=== PATIENT | female | born 2005 | race Caucasian/White ===

== ENCOUNTER 2024-07-17 12:49 | Emergency (ER) | payer OTHER ==
[2024-07-17 12:58] LABS: Glucose,Whole Blood 86 mg/dL (70-110)
--- NOTE | 2024-07-17 13:46 | ED ---
Fall HPI - General Source: patient, RN notes reviewed Mode of arrival: ambulatory Limitations: no limitations <Billy Rico - Last Filed: 07/17/24 13:45> - General Source: patient, RN notes reviewed Mode of arrival: ambulatory Limitations: no limitations - History of Present Illness MD Complaint: fall <Vi Dubois - Last Filed: 07/17/24 15:59> - General Chief Complaint: Fall Stated Complaint: head injury,dizzy Time Seen by Provider: 07/17/24 13:45 - History of Present Illness Initial Comments: Quick note: 18-year-old female presented the ER for evaluation of a head injury. Patient states night she was drinking alcohol and accidentally slipped on shoes by the front door causing her to fall backward and hit the back of her head/neck on a step. She denies loss of consciousness or blood thinner use. She states she slept all day yesterday. She also admits nausea with episodes of vomiting. Patient denies or other injuries. (Billy Rico) This is a 18-year-old female who presents to the emergency department for a head injury. States that 2 days ago when she was drinking alcohol she tripped and fe ll, hitting the back of her head. Denies any loss of consciousness. However, she continues to feel dizzy and nauseous. States that she also feels fatigued and continues to have pain to the back of her head and neck. (Vi Dubois) - Related Data Allergies Allergy/AdvReac Type Severity Reaction Status Date / Time No Known Allergies Allergy Verified 07/17/24 12:55 Review of Systems ROS Other: All systems not noted in ROS Statement are negative. <Billy Rico - Last Filed: 07/17/24 13:45> ROS Other: All systems not noted in ROS Statement are negative. <Vi Dubois - Last Filed: 07/17/24 15:59> ROS Statement: Those systems with pertinent positive or pertinent negative responses have been documented in the HPI. Past Medical History Past Medical History: No Reported History History of Any Multi-Drug Resistant Organisms: None Reported Past Surgical History: Joint Replacement, Orthopedic Surgery Past Psychological History: No Psychological Hx Reported Smoking Status: Current every day smoker Past Alcohol Use History: Occasional Past Drug Use History: None Reported <Billy Rico - Last Filed: 07/17/24 13:45> General Exam Limitations: no limitations <Billy Rico - Last Filed: 07/17/24 13:45> Limitations: no limitations General appearance: alert, in no apparent distress Head exam: Present: atraumatic, normocephalic, normal inspection Eye exam: Present: normal appearance, PERRL, EOMI. Absent: scleral icterus, co njunctival injection, periorbital swelling Respiratory exam: Present: normal lung sounds bilaterally. Absent: respiratory distress, wheezes, rales, rhonchi, stridor Cardiovascular Exam: Present: regular rate, normal rhythm GI/Abdominal exam: Present: soft, tenderness (RLQ), normal bowel sounds. Absent: distended Neurological exam: Present: alert, oriented X3, CN II-XII intact Psychiatric exam: Present: normal affect, normal mood Skin exam: Present: warm, dry, intact, normal color. Absent: rash <iV Dubois - Last Filed: 07/17/24 15:59> - General Exam Comments Initial Comments: Visual Physical Exam Vital signs reviewed General: Well-appearing, nontoxic, no acute distress. Head: Normocephalic, atraumatic Eyes: PERRLA, EOMI ENT: Airway patent Chest: Nonlabored breathing Skin: No visual rash, normal skin tone Neuro: Alert and oriented 3 Musculoskeletal: No gross abnormalities (Billy Rico) Course Vital Signs 07/17/24 07/17/24 12:52 15:18 Temperature 98.5 F 98.6 F Pulse Rate 93 64 Respiratory 18 16 Rate Blood Pressure 160/96 103/70 O2 Sat by Pulse 100 100 Oximetry Medical Decision Making <Billy Rico - Last Filed: 07/17/24 13:45> <Vi Dubois - Last Filed: 07/17/24 15:59> - Medical Decision Making I performed the quick note portion of this chart. Electronically signed by Billy Rico PA-C (Billy Rico) This is a 18 year old female who presents to the emergency department for a head injury. Was pt. sent in by a medical professional or institution? @ -No Did you speak to anyone other than the patient for history? @ -No Did you review nursing and triage notes? @ -Yes, and I agree, it is accurate with regards to the patient's symptoms. Were old charts reviewed? @ -No Differential Diagnosis? @ -Differential Diagnosis Head Injury: Contusion, hematoma, intracranial hemorrhage, skull fracture, whiplash, concussion, this is not meant to be an all-inclusive list. EKG interpreted by me (3pts min.)? @ -Not obtained X-rays interpreted by me (1pt min.)? @ -Not obtained CT interpreted by me (1pt min.)? @ -Computed tomography scan of the brain and c-spine obtained. My interpretation identifies no evidence of an acute intracranial hemorrhage, skull fracture, or cervical spine fracture. U/S interpreted by me (1pt. min.)? @ -Not obtained What testing was considered but not performed? (CT, X-rays, U/S, labs)? Why? @ -None What meds were considered but not given? Why? @ -None Did you discuss the management of the patient with other professionals? @ -No Did you reconcile home meds? @ -No Was smoking cessation discussed for >3mins.? @ -No Was critical care preformed (if so, how long)? @ -No Were there social determinants of health that impacted care today? How? (Homelessness, low income, unemployed, alcoholism, drug addiction, transportation, low edu. Level, literacy, decrease access to med. care, care home, rehab)? @ -No Was there de-escalation of care discussed even if they declined? (Discuss DNR or withdrawal of care, Hospice)? @ -No What co-morbidities impacted this encounter? (DM, HTN, Smoking, COPD, CAD, Cancer, CVA, Hep., AIDS, mental health diagnosis, sleep apnea, morbid obesity)? @ -None Was patient admitted / discharged? @ -Discharged. CT scan of the brain and c-spine obtained revealing no acute process. Symptoms treated in the emergency department. Concussion protocol/precautions discussed. Advised Ibuprofen and Tylenol as needed for pain control. Patient discharged home in stable condition. Case discussed with ED attending, Dr. Silvestre. Return precautions reviewed in depth, the patient is instructed to return to the emergency department with any new, worsening, or concerning symptoms. Patient verbalized understanding. Undiagnosed new problem with uncertain prognosis? @ -None Drug Therapy requiring intensive monitoring for toxicity (Heparin, Nitro, Insulin, Cardizem)? @ -None Were any procedures done? @ -None Diagnosis/symptom? @ -Head injury Acute, or Chronic, or Acute on Chronic? @ -Acute Uncomplicated (without systemic symptoms) or Complicated (systemic symptoms)? @ -Uncomplicated Side effects of treatment? @ -None Exacerbation, Progression, or Severe Exacerbation] @ -Not applicable Poses a threat to life or bodily function? @ -No (Vi Dubois) - Lab Data Lab Results 07/17/24 Range/Units 12:57 POC Glucose (mg/dL) 86 (70-110) mg/dL POC Glu Fire Technician ID Anyi Hoff Disposition <Billy Rico - Last Filed: 07/17/24 13:45> Is patient prescribed a controlled substance at d/c from ED?: No Time of Disposition: 14:37 <Vi Dubois - Last Filed: 07/17/24 15:59> Clinical Impression: Fall, Head injury Disposition: HOME SELF-CARE Instructions (If sedation given, give patient instructions): Concussion (ED), Head Injury (ED) Additional Instructions: Return to the emergency department with any new, worsening, or concerning symptoms. Alternate with ibuprofen and Tylenol as needed for any additional headaches. Follow up with your primary care provider in 1-2 days. Referrals: None,Stated [Primary Care Provider] - 1-2 days
[2024-07-17] MEDS: ACETAMINOPHEN TAB 500 MG TAB PO STA (14:23)
[2024-07-17] MEDS: ONDANSETRON ODT 4 MG TAB PO STA (14:23)
--- NOTE | 2024-07-17 14:26 | CT ---
EXAMINATION TYPE: CT brain cspine wo con DATE OF EXAM: 07/17/2024 2:07 PM COMPARISON: None. CLINICAL INDICATION: Female, 18 years old with history of head injury- tingling to arms; FALL, LEFT P OSTERIOR HEAD/NECK PAIN TECHNIQUE: Brain: Multiple axial CT images of the brain were obtained without IV contrast. Cspine: Axial CT images from the skull base to the inferior aspect of T2 we obtained without intraven ous contrast. Coronal and sagittal reformatted images were also reviewed. . CT DLP: 1227.4 mGycm, Automated exposure control for dose reduction was used. FINDINGS: Brain: Extra-axial spaces: No abnormal extra-axial fluid collections. Ventricular system: Within normal limits Cerebral parenchyma: No acute intraparenchymal hemorrhage or mass effect. The godoy-white junction is well differentiated. Cerebellum: Unremarkable. Mass effect: No evidence of midline shift. Intracranial vasculature: unremarkable Soft tissues: Normal. Calvarium/osseous structures: No depressed skull fracture. Paranasal sinuses and mastoid air cells: Clear. Visualized orbits: Orbital contents are intact. Cervical spine: Fracture: None. Osseous structures: Unremarkable Vertebral alignment: Within normal limits. Spinal canal/Neural Foramina: No evidence of significant spinal canal narrowing. No evidence for sign ificant neural foraminal stenosis. Neck soft tissues: Prevertebral soft tissues are within normal limits. Other: The airway is patent. The lung apices are clear. IMPRESSION: 1. No acute intracranial process. 2. No evidence of cervical spine fracture. [facility], , 07/17/2024 2:24 PM
[2024-07-17] MEDS: ONDANSETRON 4 MG ODT STARTER PACK 2 TAB BTL PO STA (15:17)
[2024-07-17 15:19] VITALS: BP 103/70; PULSE 64; RESP 16; TEMP 98.6
== END 2024-07-17 15:19 | disposition home or self-care (01) ==
LOC: EC 12:49
DX: S09.90XA Unspecified injury of head, initial encounter (principal); R42 Dizziness and giddiness; F17.200 Nicotine dependence, unspecified, uncomplicated; W01.198A Fall on same level from slipping, tripping and stumbling with subsequent striking against other object, initial encounter
CPT/HCPCS: 36415; 72125; 70450; 99284; S0119

== ENCOUNTER 2024-10-14 05:52 | Emergency (ER) | payer OTHER ==
[2024-10-14 05:58] VITALS: BP 112/76; PULSE 68; RESP 19; TEMP 97.9
[2024-10-14] MEDS: KETOROLAC 15 MG/ML 1 ML VIAL IVP STA (06:33)
[2024-10-14] MEDS: SODIUM CHLORIDE 0.9% 1,000 ML IV ONE (06:34)
[2024-10-14] MEDS: ONDANSETRON 4 MG/2 ML VIAL IVP STA (06:34)
[2024-10-14 06:37] LABS: Basophils # (A) 0.05 10*3/uL (0.00-0.10); Basophils % (A) 0.5 %; Eosinophils # (A) 0.39 10*3/uL (0.04-0.35); Eosinophils % (A) 4.1 %; HCT 41.9 % (37.2-46.3); HGB 14.0 g/dL (12.0-15.0); Lymphocytes # (A) 1.90 10*3/uL (0.90-5.00); Lymphocytes % (A) 20.1 %; MCH 28.8 pg (27.0-32.0); MCHC 33.4 g/dL (32.0-37.0); MCV 86.2 fL (80.0-97.0); Monocytes # (A) 0.83 10*3/uL (0.20-1.00); Monocytes % (A) 8.8 %; Neutrophils # (A) 6.24 10*3/uL (1.80-7.70); Neutrophils % (A) 66.2 %; Platelet Count 189 10*3/uL (140-440); RBC 4.86 10*6/uL (4.10-5.20); RDW 16.0 % (11.5-14.5); WBC 9.44 10*3/uL (4.50-10.00)
[2024-10-14 06:53] LABS: ALT 12 U/L (4-34); AST 18 U/L (14-36); African American GFR (CKD) >90 (>60 ml/min/1.73 sqM); Albumin 4.9 g/dL (3.5-5.0); Alkaline Phosphatase 81 U/L (38-126); Anion Gap 13 mmol/L; Blood Urea Nitrogen 8 mg/dL (7-17); Calcium 9.6 mg/dL (8.4-10.2); Carbon Dioxide 23 mmol/L (22-30); Chloride 102 mmol/L (98-107); Glucose 98 mg/dL (74-99); Lipase 37 U/L (23-300); Non-African American GFR(CKD) >90 (>60 ml/min/1.73 sqM); Potassium 3.8 mmol/L (3.5-5.1); Sodium 138 mmol/L (137-145); Total Protein 7.6 g/dL (6.3-8.2)
--- NOTE | 2024-10-14 07:43 | ED ---
Abdominal Pain HPI - General Chief Complaint: Abdominal Pain Stated Complaint: Abd Pain/Back Pain Time Seen by Provider: 10/14/24 06:03 Source: patient, RN notes reviewed Mode of arrival: wheelchair Limitations: no limitations - History of Present Illness Initial Comments: 19-year-old female presents emergency department chief complaint abdominal pain. Patient states pain is intensifying states she feels very bloated, distended. Patient denies any urinary symptoms no change in bowel habits admits slight nausea states that pain is making her shake denies any chance states last menstrual cycle was 1 week ago. No chest pain or shortness of breath. - Related Data Previous Rx's Medication Instructions Recorded Ketorolac [Toradol] 10 mg PO Q8HR #15 tab 10/14/24 Allergies Allergy/AdvReac Type Severity Reaction Status Date / Time No Known Allergies Allergy Verified 10/14/24 05:58 Review of Systems ROS Statement: Those systems with pertinent positive or pertinent negative responses have been documented in the HPI. ROS Other: All systems not noted in ROS Statement are negative. Past Medical History Past Medical History: No Reported History History of Any Multi-Drug Resistant Organisms: None Reported Past Surgical History: Joint Replacement, Orthopedic Surgery Past Psychological History: No Psychological Hx Reported Smoking Status: Current every day smoker Past Alcohol Use History: Occasional Past Drug Use History: None Reported General Exam Limitations: no limitations General appearance: alert, in no apparent distress Head exam: Present: atraumatic, normocephalic, normal inspection Eye exam: Present: normal appearance, PERRL, EOMI. Absent: scleral icterus, conjunctival injection, periorbital swelling ENT exam: Present: normal exam, normal oropharynx, mucous membranes moist Neck exam: Present: normal inspection. Absent: tenderness, meningismus, lymphadenopathy Respiratory exam: Present: normal lung sounds bilaterally. Absent: respiratory distress, wheezes, rales, rhonchi, stridor Cardiovascular Exam: Present: regular rate, normal rhythm, normal heart sounds. Absent: systolic murmur, diastolic murmur, rubs, gallop, clicks GI/Abdominal exam: Present: soft, tenderness, normal bowel sounds. Absent: distended, guarding, rebound, rigid Back exam: Absent: CVA tenderness (R), CVA tenderness (L) Neurological exam: Present: alert, oriented X3 Course Vital Signs 10/14/24 05:55 Temperature 97.9 F Pulse Rate 68 Respiratory 19 Rate Blood Pressure 112/76 O2 Sat by Pulse 98 Oximetry Medical Decision Making - Medical Decision Making Was pt. sent in by a medical professional or institution ([facility], [facility], urgent care, hospital, or retirement...) When possible be specific @ -No Did you speak to anyone other than the patient for history (EMS, parent, family, police, friend...)? What history was obtained from this source @ -No Did you review nursing and triage notes (agree or disagree)? Why? @ -I reviewed and agree with nursing and triage notes Were old charts reviewed (outside hosp., previous admission, EMS record, old EKG, old radiological studies, urgent care reports/EKG's, retirement records)? Report findings @ -No old charts were reviewed Differential Diagnosis (chest pain, altered mental status, abdominal pain women, abdominal pain men, vaginal bleeding, weakness, fever, dyspnea, syncope, headache, dizziness, GI bleed, back pain, seizure, CVA, palpatations, mental health, musculoskeletal)? @ -Differential Abdominal Pain Women: Appendicitis, Cholecystitis, diverticulosis, ischemic bowel, pancreatitis, hepatitis, UTI, gastroenteritis, AAA, incarcerated hernia, bowel obstruction, constipation, inflammatory bowel, hepatitis, peptic ulcer disease, splenic infarction, perforated viscus, vulvitis, ovarian torsion, PID, kidney stone, placenta abruption, this is not meant to be an all-inclusive list EKG interpreted by me (3pts min.). @None X-rays interpreted by me (1pt min.). @ -None done CT interpreted by me (1pt min.). @ -CT pelvis showing some free fluid, ovarian cyst noted U/S interpreted by me (1pt. min.). @ -None done What testing was considered but not performed or refused? (CT, X-rays, U/S, labs)? Why? @ -None What meds were considered but not given or refused? Why? @ -None Did you discuss the management of the patient with other professionals (professionals i.e. [facility], [facility], lab, RT, psych nurse, family welfare social work professor, nut cracker, te acher, navy airspace officer, case fitter)? Give summary @ -No Was smoking cessation discussed for >3mins.? @ -No Was critical care preformed (if so, how long)? @ -No Were there social determinants of health that impacted care today? How? (Homelessness, low income, unemployed, alcoholism, drug addiction, transportation, low edu. Level, literacy, decrease access to med. care, snf, rehab)? @ -No Was there de-escalation of care discussed even if they declined (Discuss DNR or withdrawal of care, Hospice)? DNR status @ -No What co-morbidities impacted this encounter? (DM, HTN, Smoking, COPD, CAD, Cancer, CVA, ARF, Chemo, Hep., AIDS, mental health diagnosis, sleep apnea, morbid obesity)? @ -None Was patient admitted / discharged? Hospital course, mention meds given and route, prescriptions, significant lab abnormalities, going to OR and other pertinent info. @ -Labs are/unremarkable patient has ruptured ovarian cyst patient's pain has resolved. Patient discharged in stable condition. Undiagnosed new problem with uncertain prognosis? @ -No Drug Therapy requiring intensive monitoring for toxicity (Heparin, Nitro, Insulin, Cardizem)? @ -No Were any procedures done? @ -No Diagnosis/symptom? @ -Ruptured ovarian cyst Acute, or Chronic, or Acute on Chronic? @ -Acute Uncomplicated (without systemic symptoms) or Complicated (systemic symptoms)? @ncomplicated Side effects of treatment? @ -No Exacerbation, Progression, or Severe Exacerbation? @ -No Poses a threat to life or bodily function? How? (Chest pain, [place], [place], pneumonia, PE, COPD, DKA, ARF, appy, cholecystitis, CVA, Diverticulitis, Homicidal, Suicidal, threat to staff... and all critical care pts) @ -No - Lab Data Result diagrams: 10/14/24 06:24 10/14/24 06:24 Lab Results 10/14/24 10/14/24 10/14/24 Range/Units 06:24 06:24 07:15 WBC 9.44 (4.50-10.00) 10*3/uL RBC 4.86 (4.10-5.20) 10*6/uL Hgb 14.0 (12.0-15.0) g/dL Hct 41.9 (37.2-46.3) % MCV 86.2 (80.0-97.0) fL MCH 28.8 (27.0-32.0) pg MCHC 33.4 (32.0-37.0) g/dL Plt Count 189 (140-440) 10*3/uL MPV 10.4 (9.5-12.2) fL Immature Gran % (Auto) 0.3 % Neutrophils % 66.2 % Lymphocytes % 20.1 % Monocytes % 8.8 % Eosinophils % 4.1 % Basophils % 0.5 % Immature Gran # 0.03 (0.00-0.04) 10*3/uL Neutrophils # 6.24 (1.80-7.70) 10*3/uL Lymphocytes # 1.90 (0.90-5.00) 10*3/uL Monocytes # 0.83 (0.20-1.00) 10*3/uL Eosinophils # 0.39 H (0.04-0.35) 10*3/uL Basophils # 0.05 (0.00-0.10) 10*3/uL Sodium 138 (137-145) mmol/L Potassium 3.8 (3.5-5.1) mmol/L Chloride 102 (98-107) mmol/L Carbon Dioxide 23 (22-30) mmol/L Anion Gap 13 mmol/L BUN 8 (7-17) mg/dL Creatinine 0.75 (0.52-1.04) mg/dL Est GFR (CKD-EPI)AfAm >90 (>60 ml/min/1.73 sqM) Est GFR (CKD-EPI)NonAf >90 (>60 ml/min/1.73 sqM) Glucose 98 (74-99) mg/dL Calcium 9.6 (8.4-10.2) mg/dL Total Bilirubin 0.6 (0.2-1.3) mg/dL AST 18 (14-36) U/L ALT 12 (4-34) U/L Alkaline Phosphatase 81 (38-126) U/L Total Protein 7.6 (6.3-8.2) g/dL Albumin 4.9 (3.5-5.0) g/dL Lipase 37 (23-300) U/L Urine Color Yellow Urine Appearance Clear (Clear) Urine pH 6.0 (5.0-8.0) Ur Specific Ages [place] 1.022 (1.001-1.035) Urine Protein Negative (Negative) Urine Glucose (UA) Negative (Negative) Urine Ketones Negative (Negative) Urine Blood Negative (Negative) Urine Nitrite Negative (Negative) Urine Bilirubin Negative (Negative) Urine Urobilinogen <2.0 (<2.0) mg/dL Ur Leukocyte Esterase Negative (Negative) Urine HCG, Qual (Not Detectd) 10/14/24 Range/Units 07:15 WBC (4.50-10.00) 10*3/uL RBC (4.10-5.20) 10*6/uL Hgb (12.0-15.0) g/dL Hct (37.2-46.3) % MCV (80.0-97.0) fL MCH (27.0-32.0) pg MCHC (32.0-37.0) g/dL Plt Count (140-440) 10*3/uL MPV (9.5-12.2) fL Immature Gran % (Auto) % Neutrophils % % Lymphocytes % % Monocytes % % Eosinophils % % Basophils % % Immature Gran # (0.00-0.04) 10*3/uL Neutrophils # (1.80-7.70) 10*3/uL Lymphocytes # (0.90-5.00) 10*3/uL Monocytes # (0.20-1.00) 10*3/uL Eosinophils # (0.04-0.35) 10*3/uL Basophils # (0.00-0.10) 10*3/uL Sodium (137-145) mmol/L Potassium (3.5-5.1) mmol/L Chloride (98-107) mmol/L Carbon Dioxide (22-30) mmol/L Anion Gap mmol/L BUN (7-17) mg/dL Creatinine (0.52-1.04) mg/dL Est GFR (CKD-EPI)AfAm (>60 ml/min/1.73 sqM) Est GFR (CKD-EPI)NonAf (>60 ml/min/1.73 sqM) Glucose (74-99) mg/dL Calcium (8.4-10.2) mg/dL Total Bilirubin (0.2-1.3) mg/dL AST (14-36) U/L ALT (4-34) U/L Alkaline Phosphatase (38-126) U/L Total Protein (6.3-8.2) g/dL Albumin (3.5-5.0) g/dL Lipase (23-300) U/L Urine Color Urine Appearance (Clear) Urine pH (5.0-8.0) Ur Specific Ages [place] (1.001-1.035) Urine Protein (Negative) Urine Glucose (UA) (Negative) Urine Ketones (Negative) Urine Blood (Negative) Urine Nitrite (Negative) Urine Bilirubin (Negative) Urine Urobilinogen (<2.0) mg/dL Ur Leukocyte Esterase (Negative) Urine HCG, Qual Not Detected (Not Detectd) Disposition Clinical Impression: Ruptured ovarian cyst Disposition: HOME SELF-CARE Condition: Stable Instructions (If sedation given, give patient instructions): Ruptured Ovarian Cyst (ED) Additional Instructions: Please return to the Emergency Department if symptoms worsen or any other concerns. Prescriptions: Ketorolac [Toradol] 10 mg PO Q8HR #15 tab Is patient prescribed a controlled substance at d/c from ED?: No Referrals: None,Stated [Primary Care Provider] - 1-2 days Time of Disposition: 08:41
[2024-10-14 07:47] LABS: Bilirubin,Urine Negative (Negative); Blood,Urine Negative (Negative); Color,Urine Yellow; Glucose,Urine (UA) Negative (Negative); Ketones,Urine Negative (Negative); Leukocyte Esterase,Urine Negative (Negative); Nitrite,Urine Negative (Negative); PH, Urine 6.0 (5.0-8.0); Protein,Urine Negative (Negative); Specific Gravity,Urine 1.022 (1.001-1.035); Urobilinogen,Urine <2.0 mg/dL (<2.0)
--- NOTE | 2024-10-14 08:27 | CT ---
EXAMINATION TYPE: CT abdomen pelvis w con CT DLP: 523.4 mGycm, Automated exposure control for dose reduction was used. DATE OF EXAM: 10/14/2024 8:16 AM COMPARISON: None CLINICAL INDICATION:Female, 19 years old with history of pain; ABD PAIN TECHNIQUE: Standard CT of the abdomen and pelvis following the administration of 100 cc of Isovue 3 00 IV contrast material. Coronal and sagittal reformats were performed. FINDINGS: LOWER CHEST: Unremarkable ABDOMEN LIVER: Unremarkable GALLBLADDER AND BILE DUCTS: Unremarkable. PANCREAS: Unremarkable. SPLEEN: Unremarkable. ADRENAL GLANDS: Unremarkable. KIDNEYS AND URETERS: No evidence of hydronephrosis or renal calculus. The kidneys enhance symmetrical ly contrast is demonstrated within both collecting systems and proximal ureters on the delayed phase. PELVIS BLADDER: Unremarkable REPRODUCTIVE: Retroverted uterus with 2 left ovarian cysts measuring up to 2.5 cm. ABDOMEN & PELVIS STOMACH AND BOWEL: Stomach and duodenum are unremarkable. No focal bowel wall thickening or surroundi ng inflammatory changes. The appendix is within normal limits. No evidence of bowel obstruction. PERITONEUM: No evidence of pneumoperitoneum. Small amount of free fluid in the pelvic cul-de-sac. VASCULATURE: No evidence of aortic aneurysm. MUSCULOSKELETAL: No acute osseous abnormalities LYMPH NODES: No evidence for lymphadenopathy. SOFT TISSUE/ABDOMINAL WALL: Unremarkable IMPRESSION: Small amount of free fluid in the pelvic cul-de-sac with a couple of left ovarian cystic lesions whic h probably represent dominant follicular cysts. Otherwise no other abnormality identified. Findings c ould be seen with a ruptured ovarian cyst. Correlate clinically with consideration for pelvic ultraso und. [facility], , 10/14/2024 8:24 AM
== END 2024-10-14 09:05 | disposition home or self-care (01) ==
LOC: EC 05:52
DX: N83.202 Unspecified ovarian cyst, left side (principal); F17.200 Nicotine dependence, unspecified, uncomplicated
CPT/HCPCS: 36415; 80053; 83690; 85025; 81003; 81025; 74177; 99284; 96374; 96375; 96361; J2405; J1885; Q9967